=== PATIENT | female | born 1995 | race Caucasian/White ===

== ENCOUNTER 2018-10-03 00:36 | Inpatient (IN) | payer MEDICAID ==
[2018-10-03] MEDS ORDERED: Iopamidol 612 MG/ML 100 ML Bottle IV SCH (02:30)
[2018-10-03] MEDS ORDERED: Sodium Chloride 0.9% 1,000 ML IV SCH ×3 (02:30→10:31)
[2018-10-03] MEDS ORDERED: Sodium Chloride 0.9% 100 ML IV ONE (02:31)
--- NOTE | 2018-10-03 02:39 | EDM.PDOC ---
ED HPI GENERAL MEDICAL PROBLEM - General Chief Complaint: Abdominal Pain Stated Complaint: ABDOMINAL PAIN, ILL Time Seen by Provider: 10/03/18 02:37 Source of Information: Reports: Patient History Limitations: Reports: No Limitations - History of Present Illness INITIAL COMMENTS - FREE TEXT/NARRATIVE: pt arrived with pain in the left lower and left mid abdoman. Onset: Today, Sudden, Other ( woke her from a sound sleep at 5 AM. ) Duration: Hour(s): Location: Reports: Abdomen Quality: Reports: Pressure Associated Symptoms: Reports: Loss of Appetite, Nausea/Vomiting, Weakness, Other left side abd pain Pain Score (Numeric/FACES): 8 - Related Data Allergies Allergy/AdvReac Type Severity Reaction Status Date / Time No Known Allergies Allergy Verified 10/03/18 01:32 Home Meds: Home Meds Albuterol Sulfate [Albuterol Sulfate Hfa] 8.5 gm IH ASDIRECTED PRN 10/03/18 [ History] Ranitidine HCl [Ranitidine] 300 mg PO BEDTIME 10/03/18 [History] Venlafaxine [Effexor XR] 150 mg PO BEDTIME 10/03/18 [History] raNITIdine HCl [Zantac] 150 mg PO DAILY 10/03/18 [History] Past Medical History Respiratory History: Reports: Asthma Gastrointestinal History: Reports: Other (See Below) Other Gastrointestinal History: reflux Neurological History: Reports: Migraines Psychiatric History: Reports: Anxiety, Depression - Infectious Disease History Infectious Disease History: Reports: Chicken Pox Social & Family History - Tobacco Use Smoking Status *Q: Never Smoker Second Hand Smoke Exposure: No - Recreational Drug Use Recreational Drug Use: No ED ROS GENERAL - Review of Systems Review Of Systems: See Below Constitutional: Reports: Fever, Chills, Malaise, Decreased Appetite HEENT: Reports: No Symptoms Respiratory: Reports: No Symptoms Cardiovascular: Reports: No Symptoms Endocrine: Reports: No Symptoms GI/Abdominal: Reports: Abdominal Pain, Decreased Appetite, Nausea, Vomiting : Reports: No Symptoms Musculoskeletal: Reports: No Symptoms Skin: Reports: No Symptoms ED EXAM, GI/ABD - Physical Exam Exam: See Below Text/Narrative:: pt arrived with pain in left colon. Sshe has had 2 loose stools today. She has vomited multiple times today. Exam Limited By: No Limitations General Appearance: Alert, Anxious, Moderate Distress Ears: Normal TMs Nose: Normal Inspection Throat/Mouth: Normal Inspection Head: Atraumatic Neck: Normal Inspection Respiratory/Chest: No Respiratory Distress Cardiovascular: Regular Rate, Rhythm GI/Abdominal Exam: Other ( tender in the left lower abdoman. ) Rectal (Female) Exam: Deferred Back Exam: Normal Inspection Extremities: Normal Inspection Neurological: Alert, Oriented, No Motor/Sensory Deficits Psychiatric: Normal Affect Course - Vital Signs Last Recorded V/S: Last Vital Signs Temp 37.3 C 10/03/18 14:41 Pulse 82 10/03/18 14:41 Resp 16 10/03/18 14:41 BP 108/71 10/03/18 14:41 Pulse Ox 100 10/03/18 14:41 - Orders/Labs/Meds Orders: Medication Orders Acetaminophen (Tylenol) 650 mg PO Q4H PRN PRN Reason: Pain (Mild 1-3)/fever Albuterol (Ventolin Hfa) 0 gm INH ASDIRECTED PRN PRN Reason: Dyspnea Albuterol (Proventil Neb Soln) 2.5 mg NEB Q4H PRN PRN Reason: Shortness Of Breath/wheezing Hydromorphone HCl (Dilaudid) 0.25 mg IVPUSH Q2H PRN PRN Reason: Abdominal Pain Last Admin: 10/03/18 14:37 Dose: 0.25 mg Ciprofloxacin/Dextrose 400 mg/ (Premix) 200 mls @ 200 mls/hr IV Q[facility]H [facility] Metronidazole 500 mg/ Premix 100 mls @ 100 mls/hr IV Q8H [facility] Last Admin: 10/03/18 16:10 Dose: 100 mls/hr Sodium Chloride (Normal Saline) 1,000 mls @ 125 mls/hr IV ASDIRECTED [facility] Lactobacillus Rhamnosus (Culturelle) 1 cap PO BID [facility] Last Admin: 10/03/18 11:32 Dose: 1 cap Ondansetron HCl (Zofran) 4 mg IV Q4H PRN PRN Reason: Nausea/Vomiting Oxycodone HCl (Oxycodone) 5 mg PO Q4H PRN PRN Reason: Pain (moderate 4-6) Last Admin: 10/03/18 11:24 Dose: 5 mg Ranitidine HCl (Zantac) 300 mg PO BEDTIME [facility] Ranitidine HCl (Zantac) 150 mg PO DAILY [facility] Sodium Chloride (Saline Flush) 10 ml FLUSH ASDIRECTED PRN PRN Reason: Keep Vein Open Venlafaxine HCl (Effexor Xr) 150 mg PO BEDTIME ABEL Labs: Laboratory Tests 10/03/18 10/03/18 10/03/18 Range/Units 01:21 01:21 01:21 WBC 13.6 H (4.5-11.0) K/uL RBC 4.41 (3.30-5.50) M/uL Hgb 13.8 (12.0-15.0) g/dL Hct 40.2 (36.0-48.0) % MCV 91 (80-98) fL MCH 31 (27-31) pg MCHC 34 (32-36) % Plt Count 263 (150-400) K/uL Neut % (Auto) 83 H (36-66) % Lymph % (Auto) 7 L (24-44) % [place] % (Auto) 9 H (2-6) % Eos % (Auto) 0 L (2-4) % Baso % (Auto) 0 (0-1) % Sodium (140-148) mmol/L Potassium (3.6-5.2) mmol/L Chloride (100-108) mmol/L Carbon Dioxide (21-32) mmol/L Anion Gap (5.0-14.0) mmol/L BUN (7-18) mg/dL Creatinine (0.6-1.0) mg/dL Est Cr Clr Drug Dosing mL/min Estimated GFR (MDRD) (>60) Glucose (74-106) mg/dL Calcium (8.5-10.1) mg/dL Total Bilirubin (0.2-1.0) mg/dL AST (15-37) U/L ALT (12-78) U/L Alkaline Phosphatase (46-116) U/L C-Reactive Protein 4.58 H (0.0-0.3) mg/dL Total Protein (6.4-8.2) g/dL Albumin (3.4-5.0) g/dL Globulin (2.3-3.5) g/dL Albumin/Globulin Ratio (1.2-2.2) Urine Color Yellow Urine Appearance Clear Urine pH 5.0 (4.5-8.0) Ur Specific [place] 1.010 (1.008-1.030) Urine Protein Negative (NEGATIVE) mg/dL Urine Glucose (UA) Negative (NEGATIVE) mg/dL Urine Ketones 50 H (NEGATIVE) mg/dL Urine Occult Blood Negative (NEGATIVE) Urine Nitrite Negative (NEGATIVE) Urine Bilirubin Negative (NEGATIVE) Urine Urobilinogen Normal (NORMAL) mg/dL Ur Leukocyte Esterase Negative (NEGATIVE) Urine RBC 0-5 (0-5) Urine WBC 0-5 (0-5) Ur Epithelial Cells Rare Amorphous Sediment Rare Urine Bacteria Rare Urine Mucus Few Urine HCG, Qual 10/03/18 10/03/18 Range/Units 01:21 02:20 WBC (4.5-11.0) K/uL RBC (3.30-5.50) M/uL Hgb (12.0-15.0) g/dL Hct (36.0-48.0) % MCV (80-98) fL MCH (27-31) pg MCHC (32-36) % Plt Count (150-400) K/uL Neut % (Auto) (36-66) % Lymph % (Auto) (24-44) % [place] % (Auto) (2-6) % Eos % (Auto) (2-4) % Baso % (Auto) (0-1) % Sodium 135 L (140-148) mmol/L Potassium 3.7 (3.6-5.2) mmol/L Chloride 100 (100-108) mmol/L Carbon Dioxide 24 (21-32) mmol/L Anion Gap 14.7 H (5.0-14.0) mmol/L BUN 12 (7-18) mg/dL Creatinine 0.9 (0.6-1.0) mg/dL Est Cr Clr Drug Dosing 73.99 mL/min Estimated GFR (MDRD) > 60 (>60) Glucose 107 H (74-106) mg/dL Calcium 8.7 (8.5-10.1) mg/dL Total Bilirubin 0.7 (0.2-1.0) mg/dL AST 21 (15-37) U/L ALT 19 (12-78) U/L Alkaline Phosphatase 73 (46-116) U/L C-Reactive Protein (0.0-0.3) mg/dL Total Protein 7.4 (6.4-8.2) g/dL Albumin 3.9 (3.4-5.0) g/dL Globulin 3.5 (2.3-3.5) g/dL Albumin/Globulin Ratio 1.1 L (1.2-2.2) Urine Color Urine Appearance Urine pH (4.5-8.0) Ur Specific [place] (1.008-1.030) Urine Protein (NEGATIVE) mg/dL Urine Glucose (UA) (NEGATIVE) mg/dL Urine Ketones (NEGATIVE) mg/dL Urine Occult Blood (NEGATIVE) Urine Nitrite (NEGATIVE) Urine Bilirubin (NEGATIVE) Urine Urobilinogen (NORMAL) mg/dL Ur Leukocyte Esterase (NEGATIVE) Urine RBC (0-5) Urine WBC (0-5) Ur Epithelial Cells Amorphous Sediment Urine Bacteria Urine Mucus Urine HCG, Qual Negative Meds: Medications Generic Name Dose Route Start Last Admin Trade Name Freq PRN Reason Stop Dose Admin Acetaminophen 650 mg 10/03/18 10:31 Tylenol PO Q4H PRN Pain (Mild 1-3)/fever Albuterol 0 gm 10/03/18 10:31 Ventolin Hfa INH ASDIRECTED PRN Dyspnea Albuterol 2.5 mg 10/03/18 10:31 Proventil Neb Soln NEB Q4H PRN Shortness Of Breath/wheezing Hydromorphone HCl 0.25 mg 10/03/18 14:18 10/03/18 14:37 Dilaudid IVPUSH 0.25 mg Q2H PRN Administration Abdominal Pain Ciprofloxacin/Dextrose 400 mg/ 200 mls @ 200 mls/hr 10/03/18 21:00 Premix IV Q12H [facility] Metronidazole 500 mg/ Premix 100 mls @ 100 mls/hr 10/03/18 16:00 10/03/18 16: 10 IV 100 mls/hr Q8H [facility] Administration Sodium Chloride 1,000 mls @ 125 mls/hr 10/03/18 10:31 Normal Saline IV ASDIRECTED [facility] Lactobacillus Rhamnosus 1 cap 10/03/18 11:00 10/03/18 11:32 Culturelle PO 1 cap BID [facility] Administration Ondansetron HCl 4 mg 10/03/18 10:31 Zofran IV Q4H PRN Nausea/Vomiting Oxycodone HCl 5 mg 10/03/18 10:31 10/03/18 11:24 Oxycodone PO 5 mg Q4H PRN Administration Pain (moderate 4-6) Ranitidine HCl 300 mg 07/12/19 21:00 Zantac PO BEDTIME ABEL Ranitidine HCl 150 mg 10/04/18 09:00 Zantac PO DAILY [facility] Sodium Chloride 10 ml 10/03/18 10:31 Saline Flush FLUSH ASDIRECTED PRN Keep Vein Open Venlafaxine HCl 150 mg 10/03/18 21:00 Effexor Xr PO BEDTIME ABEL Discontinued Medications Generic Name Dose Route Start Last Admin Trade Name Freq PRN Reason Stop Dose Admin Hydromorphone HCl 0.5 mg 10/03/18 03:59 10/03/18 04:14 Dilaudid IVPUSH 10/03/18 04:00 0.5 mg ONETIME ONE Administration Hydromorphone HCl 0.5 mg 10/03/18 07:49 10/03/18 07:54 Dilaudid IVPUSH 10/03/18 07:50 0.5 mg ONETIME ONE Administration Sodium Chloride 1,000 mls @ 999 mls/hr 10/03/18 02:30 10/03/18 03:45 Normal Saline IV 999 mls/hr ASDIRECTED [facility]EL Administration Sodium Chloride 100 mls @ 3 mls/sec 10/03/18 02:31 10/03/18 03:35 Normal Saline IV 10/03/18 02:32 3 mls/sec ONETIME ONE Administration Sodium Chloride 1,000 mls @ 999 mls/hr 10/03/18 04:00 10/03/18 05:09 Normal Saline IV 999 mls/hr ASDIRECTED [facility] Administration Metronidazole 500 mg/ Premix 100 mls @ 100 mls/hr 10/03/18 07:47 10/03/18 07: 55 IV 10/03/18 08:46 100 mls/hr ONETIME ONE Administration Ciprofloxacin/Dextrose 400 mg/ 200 mls @ 200 mls/hr 10/03/18 07:48 10/03/18 09:37 Premix IV 10/03/18 08:47 200 mls/hr ONETIME ONE Administration Iopamidol 88 ml 10/03/18 02:30 10/03/18 03:35 Isovue-300 (61%) IV 100 ml . DIRECTED [facility] Administration Ondansetron HCl 4 mg 10/03/18 03:59 10/03/18 04:12 Zofran IVPUSH 10/03/18 04:00 4 mg ONETIME ONE Administration Ranitidine HCl 150 mg 10/03/18 11:00 10/03/18 11:32 Zantac PO 150 mg DAILY [facility] Administration - Re-Assessments/Exams Free Text/Narrative Re-Assessment/Exam: 10/03/18 03:59 pt had a elevated wbc. she had a elevated crp. She had a cat scan which showed severe thickend of the transverse colon with thumb printing. 10/03/18 07:41 pt was hydrated with 2 liters of fluid and she was given dilaudid. She was able to rest but she is still rating her pain at a 8. Departure - Departure Time of Disposition: 07:49 Disposition: Admitted As Inpatient 67 Clinical Impression: Colitis, Dehydration - Discharge Information
--- NOTE | 2018-10-03 03:38 | CRLCT ---
INDICATION: Left lower abdominal. Pain TECHNIQUE: CT Abdomen and pelvis with i.v. contrast. Coronal and sagittal reformats were obtained. CONTRAST: 88 mL Isovue 300 COMPARISON: None FINDINGS: Lower chest: Unremarkable. Liver: A small 8 mm cyst is seen in the right anterior segment of the liver. Spleen: Unremarkable. Pancreas: Unremarkable. Gallbladder: Unremarkable. Kidney: Unremarkable. No kidney or ureteral stones or obstruction seen. Adrenal: Unremarkable. Bowel: Severe wall thickening with thumbprinting is present in the transverse colon. The appendix is normal in appearance and size. Vascular: Unremarkable. Lymph: Unremarkable. Peritoneum: Unremarkable. No pneumoperitoneum is seen. Trace pelvic ascites is noted. Pelvis: Unremarkable. Soft tissue: Unremarkable. Bone: Unremarkable for age. IMPRESSION: 1. Severe wall thickening with thumbprinting is present in the transverse colon. Infectious colitis such as clostridium difficile colitis should be considered. Less likely diagnostic possibilities include Crohn`s disease or ischemic colitis in the appropriate context. Dictated by Pranay Rodríguez MD @ 10/03/2018 3:36:14 AM Please note that all CT scans at this facility use dose modulation, iterative reconstruction, and/or weight-based dosing when appropriate to reduce radiation dose to as low as reasonably achievable. Dictated by: Pranay Rodríguez MD @ 10/03/2018 03:36:20 (Electronically Signed)
[2018-10-03] MEDS ORDERED: HYDROmorphone 0.5 MG/0.5 ML Syringe IVPUSH ONE ×2 (03:59→07:49)
[2018-10-03] MEDS ORDERED: Ondansetron 4 MG/2 ML SDV IVPUSH ONE (03:59)
[2018-10-03] MEDS ORDERED: metroNIDAZOLE/Normal Saline 500 MG in Premix Bag 1 BAG IV ONE (07:47)
[2018-10-03] MEDS ORDERED: Ciprofloxacin in D5W 400 MG in Premix Bag 1 BAG IV ONE ×2 (07:48)
--- NOTE | 2018-10-03 10:09 | PCM.HP ---
H&P History of Present Illness - General Date of Service: 10/03/18 Admit Problem/Dx: Admission Diagnosis/Problem Admission Diagnosis/Problem Colitis Source of Information: Patient, Provider, RN Notes Reviewed History Limitations: Reports: No Limitations - History of Present Illness Initial Comments - Free Text/Narative: Ms. Mcconnell is a 23-year-old woman who was admitted through the emergency department with abdominal pain, diarrhea, nausea, vomiting, secondary to infectious colitis. She felt well until about 48 hours prior to admission when she awoke in the morning and noted diarrhea which is very unusual for her associated with left sided pressure ache pain. Pain has been persistent since that time and does not seem to vary significantly with bowel movements, activity , or eating. In increased in intensity to the point where she presented to the emergency department very early this morning. White blood cell count is moderately elevated and CT scan of the abdomen pelvis shows evidence of colitis involving the transverse colon consistent with infectious etiology versus ulcerative colitis or ischemic colitis. She has had no bloody stools associated with current symptoms and symptoms were relatively abrupt onset making infection much more likely. She denies any fevers but has felt chills and sweats. She has not had recent antibiotic therapy. left side abd pain Pain Score (Numeric/FACES): 8 - Related Data Allergies/Adverse Reactions: Allergies Allergy/AdvReac Type Severity Reaction Status Date / Time No Known Allergies Allergy Verified 10/03/18 01:32 Home Medications: Home Meds Albuterol Sulfate [Albuterol Sulfate Hfa] 8.5 gm IH ASDIRECTED PRN 10/03/18 [ History] Venlafaxine [Effexor XR] 150 mg PO BEDTIME 10/03/18 [History] raNITIdine HCl [Zantac] 150 mg PO DAILY 10/03/18 [History] Past Medical History Respiratory History: Reports: Asthma Gastrointestinal History: Reports: Other (See Below) Other Gastrointestinal History: reflux Neurological History: Reports: Migraines Psychiatric History: Reports: Anxiety, Depression - Infectious Disease History Infectious Disease History: Reports: Chicken Pox Social & Family History - Tobacco Use Smoking Status *Q: Never Smoker Second Hand Smoke Exposure: No - Recreational Drug Use Recreational Drug Use: No H&P Review of Systems - Review of Systems: Review Of Systems: See Below General: Reports: Chills, Malaise, Weakness, Diaphoresis, Decreased Appetite. Denies: Fever HEENT: Reports: No Symptoms Pulmonary: Reports: No Symptoms Cardiovascular: Reports: No Symptoms Gastrointestinal: Reports: Abdominal Pain, Diarrhea, Decreased Appetite, Nausea , Vomiting. Denies: Constipation, Difficulty Swallowing, Distension, Hematemesis, Hematochezia, Melena Genitourinary: Reports: No Symptoms Musculoskeletal: Reports: No Symptoms Skin: Reports: No Symptoms Psychiatric: Reports: No Symptoms Neurological: Reports: No Symptoms Hematologic/Lymphatic: Reports: No Symptoms Immunologic: Reports: No Symptoms Exam - Exam Exam: See Below - Vital Signs Vital Signs: Last Vital Signs Temp Pulse 81 10/03/18 01:59 Resp 14 10/03/18 01:59 BP 129/89 10/03/18 01:59 Pulse Ox 99 10/03/18 01:59 Weight: 120 lb 13.013 oz - Exam General: Alert, Oriented, Cooperative, Moderate Distress HEENT: Conjunctiva Clear, Hearing Intact, Mucosa Moist & [place], Normal Nasal Septum, Posterior Pharynx Clear, Pupils Equal Neck: Supple, Trachea Midline, +2 Carotid Pulse wo Bruit Lungs: Clear to Auscultation, Normal Respiratory Effort Cardiovascular: Regular Rate, Regular Rhythm, Normal S1, Normal S2. No: Systolic Murmur, Diastolic Murmur GI/Abdominal Exam: Soft, Non-Tender, No Organomegaly, No Distention Back Exam: Normal Inspection, Full Range of Motion Extremities: Non-Tender, No Pedal Edema Skin: Warm, Dry, Intact Neurological: Cranial Nerves Intact, Strength Equal Bilateral, Normal Speech, Normal Tone, Sensation Intact. No: Focal Deficit Neuro Extensive - Mental Status: Alert, Oriented x3, Normal Mood/Affect, Normal Cognition, Memory Intact - Patient Data Lab Results Last 24 hrs: Laboratory Results - last 24 hr 10/03/18 10/03/18 10/03/18 Range/Units 01:21 01:21 01:21 WBC 13.6 H (4.5-11.0) K/uL RBC 4.41 (3.30-5.50) M/uL Hgb 13.8 (12.0-15.0) g/dL Hct 40.2 (36.0-48.0) % MCV 91 (80-98) fL MCH 31 (27-31) pg MCHC 34 (32-36) % Plt Count 263 (150-400) K/uL Neut % (Auto) 83 H (36-66) % Lymph % (Auto) 7 L (24-44) % [place] % (Auto) 9 H (2-6) % Eos % (Auto) 0 L (2-4) % Baso % (Auto) 0 (0-1) % Sodium (140-148) mmol/L Potassium (3.6-5.2) mmol/L Chloride (100-108) mmol/L Carbon Dioxide (21-32) mmol/L Anion Gap (5.0-14.0) mmol/L BUN (7-18) mg/dL Creatinine (0.6-1.0) mg/dL Est Cr Clr Drug Dosing mL/min Estimated GFR (MDRD) (>60) Glucose (74-106) mg/dL Calcium (8.5-10.1) mg/dL Total Bilirubin (0.2-1.0) mg/dL AST (15-37) U/L ALT (12-78) U/L Alkaline Phosphatase (46-116) U/L C-Reactive Protein 4.58 H (0.0-0.3) mg/dL Total Protein (6.4-8.2) g/dL Albumin (3.4-5.0) g/dL Globulin (2.3-3.5) g/dL Albumin/Globulin Ratio (1.2-2.2) Urine Color Yellow Urine Appearance Clear Urine pH 5.0 (4.5-8.0) Ur Specific [place] 1.010 (1.008-1.030) Urine Protein Negative (NEGATIVE) mg/dL Urine Glucose (UA) Negative (NEGATIVE) mg/dL Urine Ketones 50 H (NEGATIVE) mg/dL Urine Occult Blood Negative (NEGATIVE) Urine Nitrite Negative (NEGATIVE) Urine Bilirubin Negative (NEGATIVE) Urine Urobilinogen Normal (NORMAL) mg/dL Ur Leukocyte Esterase Negative (NEGATIVE) Urine RBC 0-5 (0-5) Urine WBC 0-5 (0-5) Ur Epithelial Cells Rare Amorphous Sediment Rare Urine Bacteria Rare Urine Mucus Few Urine HCG, Qual 10/03/18 10/03/18 Range/Units 01:21 02:20 WBC (4.5-11.0) K/uL RBC (3.30-5.50) M/uL Hgb (12.0-15.0) g/dL Hct (36.0-48.0) % MCV (80-98) fL MCH (27-31) pg MCHC (32-36) % Plt Count (150-400) K/uL Neut % (Auto) (36-66) % Lymph % (Auto) (24-44) % [place] % (Auto) (2-6) % Eos % (Auto) (2-4) % Baso % (Auto) (0-1) % Sodium 135 L (140-148) mmol/L Potassium 3.7 (3.6-5.2) mmol/L Chloride 100 (100-108) mmol/L Carbon Dioxide 24 (21-32) mmol/L Anion Gap 14.7 H (5.0-14.0) mmol/L BUN 12 (7-18) mg/dL Creatinine 0.9 (0.6-1.0) mg/dL Est Cr Clr Drug Dosing 73.99 mL/min Estimated GFR (MDRD) > 60 (>60) Glucose 107 H (74-106) mg/dL Calcium 8.7 (8.5-10.1) mg/dL Total Bilirubin 0.7 (0.2-1.0) mg/dL AST 21 (15-37) U/L ALT 19 (12-78) U/L Alkaline Phosphatase 73 (46-116) U/L C-Reactive Protein (0.0-0.3) mg/dL Total Protein 7.4 (6.4-8.2) g/dL Albumin 3.9 (3.4-5.0) g/dL Globulin 3.5 (2.3-3.5) g/dL Albumin/Globulin Ratio 1.1 L (1.2-2.2) Urine Color Urine Appearance Urine pH (4.5-8.0) Ur Specific [place] (1.008-1.030) Urine Protein (NEGATIVE) mg/dL Urine Glucose (UA) (NEGATIVE) mg/dL Urine Ketones (NEGATIVE) mg/dL Urine Occult Blood (NEGATIVE) Urine Nitrite (NEGATIVE) Urine Bilirubin (NEGATIVE) Urine Urobilinogen (NORMAL) mg/dL Ur Leukocyte Esterase (NEGATIVE) Urine RBC (0-5) Urine WBC (0-5) Ur Epithelial Cells Amorphous Sediment Urine Bacteria Urine Mucus Urine HCG, Qual Negative Result Diagrams: 10/03/18 01:21 10/03/18 01:21 *Q Meaningful Use (ADM) - VTE Risk Assess *Q Each Risk Factor Represents 1 Point: None Total Score 1 Point Risk Factors: 0 Each Risk Factor Represents 2 Points: None Total Score 2 Point Risk Factors: 0 Each Risk Factor Represents 3 Points: None Total Score 3 Point Risk Factors: 0 Each Risk Factor Represents 5 Points: None Total Score 5 Point Risk Factors: 0 Venous Thromboembolism Risk Factor Score *Q: 0 Problem List Initiated/Reviewed/Updated: Yes Orders Last 24hrs: Active Orders 24 hr Category Date Time Status Patient Status Manage Transfer [TRANSFER] Routine ADT 10/03/18 09:57 Ordered CLOSTRIDIUM DIFFICILE BY PCR [RM] Stat Lab 10/03/18 03:58 Ordered Iopamidol [Isovue-300 (61%)] Med 10/03/18 02:30 Active 88 ml IV . DIRECTED Sodium Chloride 0.9% [Normal Saline] 1,000 ml Med 10/03/18 02:30 Active IV ASDIRECTED Sodium Chloride 0.9% [Normal Saline] 1,000 ml Med 10/03/18 04:00 Active IV ASDIRECTED Isolation [COMM] Stat Oth 10/03/18 03:58 Ordered Resuscitation Status Routine Resus Stat 10/03/18 09:59 Ordered Medication Orders Sodium Chloride (Normal Saline) 1,000 mls @ 999 mls/hr IV ASDIRECTED [facility] Last Admin: 10/03/18 03:45 Dose: 999 mls/hr Sodium Chloride (Normal Saline) 1,000 mls @ 999 mls/hr IV ASDIRECTED [facility] Last Admin: 10/03/18 05:09 Dose: 999 mls/hr Iopamidol (Isovue-300 (61%)) 88 ml IV . DIRECTED [facility] Last Admin: 10/03/18 03:35 Dose: 100 ml Assessment/Plan Comment:: ASSESSMENT AND PLAN COLITIS-likely infectious, less likely ulcerative colitis given abrupt onset of symptoms. Not likely ischemic colitis given her age and she has had no bloody diarrhea to this point. -Stool for C. difficile -IV fluids for hydration -Clear liquid diet -Pain and nausea medication as needed -IV ciprofloxacin and Flagyl -Consider colonoscopy if symptoms do not improve with current management, otherwise plan for outpatient colonoscopy MAINTENANCE ISSUES -DVT prophylaxis; not indicated -GI prophylaxis; continue outpatient H2 lien therapy -[place] catheter; not indicated -Nutrition; clear liquid diet -Nicotine dependence; not required CODE STATUS-FULL CODE ADMISSION STATUS-patient will be admitted to inpatient status, expect at least a 2 night hospital stay for evaluation and management of problems as outlined above. At the time of this admission I do not reasonably expected evaluation and management of this problem will require more than a 96 hour hospital stay. DISPOSITION-anticipate discharge to home after the hospital stay. PRIMARY CARE PROVIDER-she is from [place] and receives primary health care there
[2018-10-03] MEDS ORDERED: Albuterol 8 GM Inhaler INH PRN (10:31)
[2018-10-03] MEDS ORDERED: Acetaminophen 325 MG Tab PO PRN (10:31)
[2018-10-03] MEDS ORDERED: Sodium Chloride 0.9% 10 ML Syringe FLUSH PRN (10:31)
[2018-10-03] MEDS ORDERED: Albuterol 0.083% 2.5 MG/3 ML Neb Soln NEB PRN (10:31)
[2018-10-03] MEDS ORDERED: Ondansetron 4 MG/2 ML SDV IV PRN (10:31)
[2018-10-03] MEDS ORDERED: oxyCODONE 5 MG Tab PO PRN (10:31)
[2018-10-03] MEDS: Lactobacillus Rhamnosus GG (Probiotic) Cap PO SCH ×2 (11:32→21:17)
[2018-10-03] MEDS: HYDROmorphone 0.5 MG/0.5 ML Syringe IVPUSH PRN ×2 (14:37→21:14)
[2018-10-03] MEDS: metroNIDAZOLE/Normal Saline 500 MG in Premix Bag 1 BAG IV SCH ×2 (16:10→23:34)
[2018-10-03] MEDS ORDERED: Non-Formulary Medication 1 Each (Venlafaxine [Effexor Xr] 150 MG) PO SCH (21:00)
[2018-10-03] MEDS: Venlafaxine 75 MG Cap.ER PO SCH (21:17)
[2018-10-03] MEDS: Ciprofloxacin in D5W 400 MG in Premix Bag 1 BAG IV SCH ×2 (21:21)
[2018-10-04] MEDS: metroNIDAZOLE/Normal Saline 500 MG in Premix Bag 1 BAG IV SCH ×3 (08:13→23:37)
[2018-10-04] MEDS: Lactobacillus Rhamnosus GG (Probiotic) Cap PO SCH ×2 (09:16→21:58)
[2018-10-04] MEDS: Ciprofloxacin in D5W 400 MG in Premix Bag 1 BAG IV SCH ×4 (09:52→21:57)
[2018-10-04] MEDS ORDERED: traMADol 50 MG Tab PO PRN (13:26)
--- NOTE | 2018-10-04 13:29 | PCM.PN ---
- General Info Date of Service: 10/04/18 Subjective Update: Ms. Mcconnell has noted modest improvement in symptoms since yesterday with less pain and no further diarrhea. Vital signs have remained stable and she has been afebrile. Functional Status: Reports: Tolerating Diet, Ambulating, Urinating - Review of Systems General: Denies: Fever, Chills Pulmonary: Reports: No Symptoms Cardiovascular: Reports: No Symptoms Gastrointestinal: Reports: Abdominal Pain, Decreased Appetite, Nausea. Denies: Constipation, Diarrhea, Difficulty Swallowing, Vomiting - Patient Data Vitals - Most Recent: Last Vital Signs Temp 99.9 F 10/04/18 11:00 Pulse 68 10/04/18 11:00 Resp 17 10/04/18 11:00 BP 104/62 10/04/18 11:00 Pulse Ox 97 10/04/18 11:00 Weight - Most Recent: 122 lb 3.2 oz I&O - Last 24 Hours: Intake & Output 10/03/18 10/04/18 10/04/18 22:59 06:59 14:59 Intake Total 1600 1828 860 Output Total 1800 600 450 Balance -200 1228 410 Lab Results Last 24 Hours: Laboratory Results - last 24 hr 10/04/18 10/04/18 Range/Units 05:45 05:45 WBC 12.1 H (4.5-11.0) K/uL RBC 3.79 (3.30-5.50) M/uL Hgb 11.8 L D (12.0-15.0) g/dL Hct 35.6 L (36.0-48.0) % MCV 94 (80-98) fL MCH 31 (27-31) pg MCHC 33 (32-36) % Plt Count 198 (150-400) K/uL Neut % (Auto) 73 H (36-66) % Lymph % (Auto) 15 L (24-44) % [place] % (Auto) 11 H (2-6) % Eos % (Auto) 1 L (2-4) % Baso % (Auto) 0 (0-1) % Sodium 139 L (140-148) mmol/L Potassium 3.7 (3.6-5.2) mmol/L Chloride 106 (100-108) mmol/L Carbon Dioxide 25 (21-32) mmol/L Anion Gap 11.7 (5.0-14.0) mmol/L BUN 5 L D (7-18) mg/dL Creatinine 0.8 (0.6-1.0) mg/dL Est Cr Clr Drug Dosing 83.23 mL/min Estimated GFR (MDRD) > 60 (>60) Glucose 94 (74-106) mg/dL Calcium 8.2 L (8.5-10.1) mg/dL Med Orders - Current: Current Medications Acetaminophen (Tylenol) 650 mg PO Q4H PRN PRN Reason: Pain (Mild 1-3)/fever Last Admin: 10/04/18 09:48 Dose: 650 mg Albuterol (Ventolin Hfa) 0 gm INH ASDIRECTED PRN PRN Reason: Dyspnea Albuterol (Proventil Neb Soln) 2.5 mg NEB Q4H PRN PRN Reason: Shortness Of Breath/wheezing Ciprofloxacin/Dextrose 400 mg/ (Premix) 200 mls @ 200 mls/hr IV Q12H [facility] Last Admin: 10/04/18 09:52 Dose: 200 mls/hr Metronidazole 500 mg/ Premix 100 mls @ 100 mls/hr IV Q8H [facility] Last Admin: 10/04/18 08:13 Dose: 100 mls/hr Lactobacillus Rhamnosus (Culturelle) 1 cap PO BID [facility] Last Admin: 10/04/18 09:16 Dose: 1 cap Ondansetron HCl (Zofran) 4 mg IV Q4H PRN PRN Reason: Nausea/Vomiting Ranitidine HCl (Zantac) 300 mg PO BEDTIME [facility] Last Admin: 10/03/18 21:17 Dose: 300 mg Ranitidine HCl (Zantac) 150 mg PO DAILY [facility] Last Admin: 10/04/18 09:16 Dose: 150 mg Sodium Chloride (Saline Flush) 10 ml FLUSH ASDIRECTED PRN PRN Reason: Keep Vein Open Tramadol HCl (Ultram) 50 mg PO Q6H PRN PRN Reason: Pain Venlafaxine HCl (Effexor Xr) 150 mg PO BEDTIME [facility] Last Admin: 10/03/18 21:17 Dose: 150 mg Discontinued Medications Hydromorphone HCl (Dilaudid) 0.5 mg IVPUSH ONETIME ONE Stop: 10/03/18 04:00 Last Admin: 10/03/18 04:14 Dose: 0.5 mg Hydromorphone HCl (Dilaudid) 0.5 mg IVPUSH ONETIME ONE Stop: 10/03/18 07:50 Last Admin: 10/03/18 07:54 Dose: 0.5 mg Hydromorphone HCl (Dilaudid) 0.25 mg IVPUSH Q2H PRN PRN Reason: Abdominal Pain Last Admin: 10/03/18 21:14 Dose: 0.25 mg Sodium Chloride (Normal Saline) 1,000 mls @ 999 mls/hr IV ASDIRECTED [facility] Last Admin: 10/03/18 03:45 Dose: 999 mls/hr Sodium Chloride (Normal Saline) 100 mls @ 3 mls/sec IV ONETIME ONE Stop: 10/03/18 02:32 Last Admin: 10/03/18 03:35 Dose: 3 mls/sec Sodium Chloride (Normal Saline) 1,000 mls @ 999 mls/hr IV ASDIRECTED [facility] Last Admin: 10/03/18 05:09 Dose: 999 mls/hr Metronidazole 500 mg/ Premix 100 mls @ 100 mls/hr IV ONETIME ONE Stop: 10/03/18 08:46 Last Admin: 10/03/18 07:55 Dose: 100 mls/hr Ciprofloxacin/Dextrose 400 mg/ (Premix) 200 mls @ 200 mls/hr IV ONETIME ONE Stop: 10/03/18 08:47 Last Admin: 10/03/18 09:37 Dose: 200 mls/hr Sodium Chloride (Normal Saline) 1,000 mls @ 125 mls/hr IV ASDIRECTED [facility] Last Admin: 10/03/18 19:04 Dose: 125 mls/hr Iopamidol (Isovue-300 (61%)) 88 ml IV . DIRECTED [facility] Last Admin: 10/03/18 03:35 Dose: 100 ml Ondansetron HCl (Zofran) 4 mg IVPUSH ONETIME ONE Stop: 10/03/18 04:00 Last Admin: 10/03/18 04:12 Dose: 4 mg Oxycodone HCl (Oxycodone) 5 mg PO Q4H PRN PRN Reason: Pain (moderate 4-6) Last Admin: 10/03/18 11:24 Dose: 5 mg Ranitidine HCl (Zantac) 150 mg PO DAILY [facility] Last Admin: 10/03/18 11:32 Dose: 150 mg - Exam General: Alert, Oriented, Cooperative, Mild Distress Lungs: Clear to Auscultation, Normal Respiratory Effort Cardiovascular: Regular Rate, Regular Rhythm, No Murmurs GI/Abdominal Exam: Soft, No Organomegaly, Tender. No: Distended, Guarding, Rigid, Rebound Extremities: Non-Tender, No Pedal Edema - Problem List Review Problem List Initiated/Reviewed/Updated: Yes - My Orders Last 24 Hours: My Active Orders 10/03/18 16:00 metroNIDAZOLE/Normal Saline [Flagyl 500 MG in NS 100 ML] 500 mg Premix Bag 1 bag IV Q8H 10/03/18 21:00 Ciprofloxacin in D5W [Cipro in D5W 400 MG/200 ML] 400 mg Premix Bag 1 bag IV Q12H Ranitidine [Zantac] 300 mg PO BEDTIME Venlafaxine [Effexor XR] 150 mg PO BEDTIME 10/04/18 09:00 Ranitidine [Zantac] 150 mg PO DAILY 10/04/18 13:24 Convert IV to Saline Lock [OM.PC] Routine 10/04/18 13:26 traMADol [Ultram] 50 mg PO Q6H PRN 10/05/18 05:00 CBC WITH AUTO DIFF [HEME] Timed - Plan Plan:: ASSESSMENT AND PLAN COLITIS-likely infectious, modest improvement in symptoms with current management -Stool for C. difficile -Saline lock IV -Advanced to soft low residue diet -Pain and nausea medication as needed -IV ciprofloxacin and Flagyl -Consider colonoscopy if symptoms do not improve with current management, otherwise plan for outpatient colonoscopy MAINTENANCE ISSUES -DVT prophylaxis; not indicated -GI prophylaxis; continue outpatient H2 lien therapy -Madison catheter; not indicated -Nutrition; clear liquid diet -Nicotine dependence; not required CODE STATUS-FULL CODE ADMISSION STATUS-patient will be admitted to inpatient status, expect at least a 2 night hospital stay for evaluation and management of problems as outlined above. At the time of this admission I do not reasonably expected evaluation and management of this problem will require more than a 96 hour hospital stay. DISPOSITION-anticipate discharge to home after the hospital stay. PRIMARY CARE PROVIDER-she is from [place] and receives primary health care there
[2018-10-04] MEDS: Venlafaxine 75 MG Cap.ER PO SCH (21:58)
[2018-10-05] MEDS: metroNIDAZOLE/Normal Saline 500 MG in Premix Bag 1 BAG IV SCH (07:31)
[2018-10-05] MEDS: Lactobacillus Rhamnosus GG (Probiotic) Cap PO SCH (09:00)
[2018-10-05] MEDS: Ciprofloxacin in D5W 400 MG in Premix Bag 1 BAG IV SCH ×2 (09:00)
--- NOTE | 2018-10-05 11:24 | PCM.DCSUM1 ---
Discharge Summary - Hospital Course Brief History: Ms. Mcconnell is a 23-year-old woman who was admitted through the emergency department with abdominal pain, nausea, vomiting, and diarrhea, secondary to underlying infectious colitis. - Discharge Data Discharge Date: 10/05/18 Discharge Disposition: Home, Self-Care 01 Condition: Fair - Discharge Diagnosis/Problem(s) (1) Colitis SNOMED Code(s): 53581721 ICD Code: K52.9 - NONINFECTIVE GASTROENTERITIS AND COLITIS, UNSPECIFIED Status: Acute Current Visit: Yes (2) Dehydration SNOMED Code(s): 04400692 ICD Code: E86.0 - DEHYDRATION Status: Acute Current Visit: Yes - Patient Summary/Data Hospital Course: Ms. Mcconnell is a 23-year-old woman who was admitted through the emergency department with abdominal pain, diarrhea, nausea, vomiting, secondary to infectious colitis. She felt well until about 48 hours prior to admission when she awoke in the morning and noted diarrhea which is very unusual for her, associated with left sided pressure ache pain. Pain has been persistent since that time and does not seem to vary significantly with bowel movements, activity , or eating. In increased in intensity to the point where she presented to the emergency department very early this morning. White blood cell count is moderately elevated and CT scan of the abdomen pelvis shows evidence of colitis involving the transverse colon consistent with infectious etiology versus ulcerative colitis or ischemic colitis. She has had no bloody stools associated with current symptoms and symptoms were relatively abrupt onset making infection much more likely. She denies any fevers but has felt chills and sweats. She has not had recent antibiotic therapy. On admission she was given IV fluids for hydration as well as pain medication and medication for nausea. Stool study for Clostridium difficile was ordered, but not obtained during hospitalization and she had no further diarrhea over the 2 day course of her hospital stay. IV antibiotic therapy was initiated on admission including IV ciprofloxacin and metronidazole. By the day after admission she was feeling somewhat better although continued to have moderate left-sided abdominal pain and nausea. She was placed on a GI soft diet, which she tolerated prior to discharge. By the morning of discharge pain was only very mild and well tolerated. She will be discharged to home with oral antibiotic therapy including ciprofloxacin and metronidazole for an additional 5 days. Follow-up appointment will be scheduled with her primary care provider within one week. Activity will be as tolerated and she will remain on a soft low residue diet. Follow-up colonoscopy should be scheduled in 2-4 weeks. - Patient Instructions Diet: Usual Diet as Tolerated, GI Soft/Low Residue/Low Fiber Activity: As Tolerated Other/Special Instructions: Schedule follow-up appointment with primary care provider [facility]. Schedule colonoscopy in 2-4 weeks. - Discharge Plan *PRESCRIPTION DRUG MONITORING PROGRAM REVIEWED*: Not Applicable *COPY OF PRESCRIPTION DRUG MONITORING REPORT IN PATIENT CARLOZ: Not Applicable Prescriptions/Med Rec: Ciprofloxacin HCl [Cipro] 500 mg PO BID #10 tablet Lactobacillus Rhamnosus GG [Culturelle] 1 cap PO BID #60 cap metroNIDAZOLE [Flagyl] 500 mg PO Q8H #15 tab Home Medications: Home Meds Albuterol Sulfate [Albuterol Sulfate Hfa] 8.5 gm IH ASDIRECTED PRN 10/03/18 [ History] Ranitidine HCl [Ranitidine] 300 mg PO BEDTIME 10/03/18 [History] Venlafaxine [Effexor XR] 150 mg PO BEDTIME 10/03/18 [History] raNITIdine HCl [Zantac] 150 mg PO DAILY 10/03/18 [History] Ciprofloxacin HCl [Cipro] 500 mg PO BID #10 tablet 10/05/18 [Rx] Lactobacillus Rhamnosus GG [Culturelle] 1 cap PO BID #60 cap 10/05/18 [Rx] metroNIDAZOLE [Flagyl] 500 mg PO Q8H #15 tab 10/05/18 [Rx] Referrals: PCP,None [Primary Care Provider] - - Discharge Summary/Plan Comment DC Time >30 min.: No - Patient Data Vitals - Most Recent: Last Vital Signs Temp 97.5 F 10/05/18 07:31 Pulse 61 10/05/18 07:31 Resp 16 10/05/18 07:31 BP 103/62 10/05/18 07:31 Pulse Ox 100 10/05/18 07:31 Weight - Most Recent: 122 lb 3.2 oz I&O - Last 24 hours: Intake & Output 10/04/18 10/05/18 10/05/18 22:59 06:59 14:59 Intake Total 1100 100 Balance 1100 100 Lab Results - Last 24 hrs: Laboratory Results - last 24 hr 10/05/18 Range/Units 05:08 WBC 8.6 (4.5-11.0) K/uL RBC 3.78 (3.30-5.50) M/uL Hgb 11.5 L (12.0-15.0) g/dL Hct 35.2 L (36.0-48.0) % MCV 93 (80-98) fL MCH 30 (27-31) pg MCHC 33 (32-36) % Plt Count 217 (150-400) K/uL Neut % (Auto) 62 (36-66) % Lymph % (Auto) 27 (24-44) % [place] % (Auto) 9 H (2-6) % Eos % (Auto) 2 (2-4) % Baso % (Auto) 0 (0-1) % Med Orders - Current: Current Medications Acetaminophen (Tylenol) 650 mg PO Q4H PRN PRN Reason: Pain (Mild 1-3)/fever Last Admin: 10/04/18 09:48 Dose: 650 mg Albuterol (Ventolin Hfa) 0 gm INH ASDIRECTED PRN PRN Reason: Dyspnea Albuterol (Proventil Neb Soln) 2.5 mg NEB Q4H PRN PRN Reason: Shortness Of Breath/wheezing Ciprofloxacin/Dextrose 400 mg/ (Premix) 200 mls @ 200 mls/hr IV Q12H [facility] Last Admin: 10/05/18 09:00 Dose: 200 mls/hr Metronidazole 500 mg/ Premix 100 mls @ 100 mls/hr IV Q8H [facility] Last Admin: 10/05/18 07:31 Dose: 100 mls/hr Lactobacillus Rhamnosus (Culturelle) 1 cap PO BID [facility] Last Admin: 10/05/18 09:00 Dose: 1 cap Ondansetron HCl (Zofran) 4 mg IV Q4H PRN PRN Reason: Nausea/Vomiting Ranitidine HCl (Zantac) 300 mg PO BEDTIME [facility] Last Admin: 10/04/18 21:58 Dose: 300 mg Ranitidine HCl (Zantac) 150 mg PO DAILY [facility] Last Admin: 10/05/18 09:01 Dose: 150 mg Sodium Chloride (Saline Flush) 10 ml FLUSH ASDIRECTED PRN PRN Reason: Keep Vein Open Tramadol HCl (Ultram) 50 mg PO Q6H PRN PRN Reason: Pain Last Admin: 10/04/18 16:01 Dose: 50 mg Venlafaxine HCl (Effexor Xr) 150 mg PO BEDTIME [facility] Last Admin: 10/04/18 21:58 Dose: 150 mg Discontinued Medications Hydromorphone HCl (Dilaudid) 0.5 mg IVPUSH ONETIME ONE Stop: 10/03/18 04:00 Last Admin: 10/03/18 04:14 Dose: 0.5 mg Hydromorphone HCl (Dilaudid) 0.5 mg IVPUSH ONETIME ONE Stop: 10/03/18 07:50 Last Admin: 10/03/18 07:54 Dose: 0.5 mg Hydromorphone HCl (Dilaudid) 0.25 mg IVPUSH Q2H PRN PRN Reason: Abdominal Pain Last Admin: 10/03/18 21:14 Dose: 0.25 mg Sodium Chloride (Normal Saline) 1,000 mls @ 999 mls/hr IV ASDIRECTED [facility] Last Admin: 10/03/18 03:45 Dose: 999 mls/hr Sodium Chloride (Normal Saline) 100 mls @ 3 mls/sec IV ONETIME ONE Stop: 10/03/18 02:32 Last Admin: 10/03/18 03:35 Dose: 3 mls/sec Sodium Chloride (Normal Saline) 1,000 mls @ 999 mls/hr IV ASDIRECTED [facility] Last Admin: 10/03/18 05:09 Dose: 999 mls/hr Metronidazole 500 mg/ Premix 100 mls @ 100 mls/hr IV ONETIME ONE Stop: 10/03/18 08:46 Last Admin: 10/03/18 07:55 Dose: 100 mls/hr Ciprofloxacin/Dextrose 400 mg/ (Premix) 200 mls @ 200 mls/hr IV ONETIME ONE Stop: 10/03/18 08:47 Last Admin: 10/03/18 09:37 Dose: 200 mls/hr Sodium Chloride (Normal Saline) 1,000 mls @ 125 mls/hr IV ASDIRECTED [facility] Last Admin: 10/03/18 19:04 Dose: 125 mls/hr Iopamidol (Isovue-300 (61%)) 88 ml IV . DIRECTED [facility] Last Admin: 10/03/18 03:35 Dose: 100 ml Ondansetron HCl (Zofran) 4 mg IVPUSH ONETIME ONE Stop: 10/03/18 04:00 Last Admin: 10/03/18 04:12 Dose: 4 mg Oxycodone HCl (Oxycodone) 5 mg PO Q4H PRN PRN Reason: Pain (moderate 4-6) Last Admin: 10/03/18 11:24 Dose: 5 mg Ranitidine HCl (Zantac) 150 mg PO DAILY [facility] Last Admin: 10/03/18 11:32 Dose: 150 mg - Exam General: Reports: Alert, Oriented, Cooperative, Mild Distress Lungs: Reports: Clear to Auscultation Cardiovascular: Reports: Regular Rate, Regular Rhythm GI/Abdominal Exam: Soft, No Organomegaly, Tender. No: Distended, Guarding, Rigid, Rebound *Q Meaningful Use (DIS) - VTE *Q VTE Pharmacological Contraindications *Q: Not Candidate LT Anticoag
== END 2018-10-05 12:05 | disposition home or self-care (01) | DRG 392 ==
LOC: JP.ED 00:36 → JP.MS 09:57
PROVIDERS: ADMIT Hospitalist; ATTEND Hospitalist
DX: K52.9 Noninfective gastroenteritis and colitis, unspecified (principal); E86.0 Dehydration; K21.9 Gastro-esophageal reflux disease without esophagitis; F41.9 Anxiety disorder, unspecified; F32.9 Major depressive disorder, single episode, unspecified; J45.909 Unspecified asthma, uncomplicated
CPT/HCPCS: 36415; 74177; 80048; 80053; 81001; 81025; 85025; 86140; 96361; 96365; 96367; 96375; 96376; 99285; 99285-25; A9270-GY; J0744; J1170; J2405; J3490; J7030; Q9967

== ENCOUNTER 2018-11-26 06:47 | Day surgery (SDC) | payer MEDICAID ==
[~2018-11-26 06:47] MED LIST: Midazolam 1 MG/ML 2 ML SDV ONE; Propofol 200 MG/20 ML SDV ONE; fentaNYL 100 MCG/2 ML SDV ONE
[2018-11-26] MEDS ORDERED: Lactated Ringers 1,000 ML IV SCH (07:30)
[2018-11-26] MEDS ORDERED: Propofol 200 MG/20 ML SDV ONE (08:54)
--- NOTE | 2018-11-26 15:37 | OR ---
DATE OF PROCEDURE: 11/26/2018 PREOPERATIVE DIAGNOSES: Recent colitis, diarrhea. POSTOPERATIVE DIAGNOSES: Recent colitis, diarrhea. PROCEDURE: Colonoscopy to the cecum with random colonic biopsies. SURGEON: Alexis King MD ANESTHESIA: IV anesthesia with monitored anesthesia care. INDICATION: This 23-year-old white female about a month ago was in the hospital for a few days with abdominal pain and diarrhea. CT scan showed a thickened colon consistent with colitis. The diarrhea persists. Her abdominal pain has resolved. She is referred for a colonoscopy at this time. I counseled her for a colonoscopy with possible biopsy and/or polypectomy including risks and alternatives and she gave her informed consent to proceed. PROCEDURE IN DETAIL: The patient was placed in the left lateral decubitus position. IV anesthesia was administered by the Anesthesia Service. Time-out was held. A rectal exam was performed, which was unremarkable. The flexible video Olympus colonoscope was introduced through her anus, up her rectum, and out her colon all the way to the cecum. The mucosa appeared unremarkable. The scope was then slowly withdrawn examining the mucosa throughout. We obtained random colonic biopsies throughout the entire colon. No mucosal abnormalities were noted. The scope was retroflexed in the rectum with the distal rectum appearing unremarkable. The scope was straightened and removed. She tolerated the procedure well. Alexis King MD /[id number]
== END 2018-11-26 10:49 | disposition home or self-care (01) ==
LOC: JP.SDS 06:47
PROVIDERS: ATTEND Surgery
DX: R19.7 Diarrhea, unspecified (principal); J45.909 Unspecified asthma, uncomplicated; F32.9 Major depressive disorder, single episode, unspecified; Z87.891 Personal history of nicotine dependence
CPT/HCPCS: 45380; 81025; J2250; J2704; J3010; J7120

== ENCOUNTER 2021-10-23 11:26 | Emergency (ER) | payer MEDICAID | END 2021-10-23 14:30 | disposition home or self-care (01) | LOC: JP.ED 11:26 | DX: N39.0 Urinary tract infection, site not specified (principal); J45.909 Unspecified asthma, uncomplicated; F17.210 Nicotine dependence, cigarettes, uncomplicated; Z79.899 Other long term (current) drug therapy | CPT/HCPCS: 74022; 74022-26; 81001; 99282; 99284 ==